=== PATIENT | male | born 1955 | race Caucasian/White ===

== ENCOUNTER 2018-06-16 06:06 | Inpatient (IN) | payer OTHER ==
[2018-06-15 14:29] VITALS: BMI 27.9
[2018-06-16] MEDS ORDERED: CEFAZOLIN 2 GM/D5W 2 GM/50 ML ML IVPB ONE (06:54)
[2018-06-16] MEDS ORDERED: GENTAMICIN SO4 80 MG/2 ML VIAL ONE (07:22)
[2018-06-16] MEDS ORDERED: BUPIVACAINE HCL/PF 0.5% (5MG/ML) 10 ML VIAL ONE (07:23)
[2018-06-16] MEDS ORDERED: THROMBIN (BOVINE) 20,000 UNIT VIAL TP ONE (07:23)
[2018-06-16] MEDS ORDERED: LIDOCAINE 1%-EPI 1:100,000 30 ML MDV IJ ONE ×2 (07:24→07:58)
[2018-06-16] MEDS ORDERED: THROMBIN (BOVINE) 5,000 UNIT VIAL TP ONE ×2 (07:24→08:55)
[2018-06-16] MEDS ORDERED: PROPOFOL 20 ML ONE ×2 (07:48)
[2018-06-16] MEDS ORDERED: MIDAZOLAM HCL 2 MG/2 ML SINGLE DOSE VIAL ONE (07:48)
[2018-06-16] MEDS ORDERED: LIDOCAINE HCL/PF 2% SDV 5ML VIAL ONE (07:49)
[2018-06-16] MEDS ORDERED: ROCURONIUM BROMIDE 50 MG/5 ML VIAL ONE (07:49)
--- NOTE | 2018-06-16 08:29 | HP ---
Admitting History and Physical - Primary Care Physician PCP: Radha Ayala - Admission Chief Complaint: Bilateral UE parasthesias due to cervical stenosis History of Present Illness: 62yo male with PMHx of BPH (not on medications). Comes to [facility] for scheduled C5 /6 ACDF secondary to his cervical spondylosis with instability. Denies n/v/f/c, CP, SOB, SAUNDERS. Denies WILSON. History Source: Patient Limitations to Obtaining History: No Limitations - Past Medical History TUBE SPLICER: No: CVA, Migraine, Peripheral Neuropathy, Syncope, TIA, Vertigo Cardiovascular: No: AFIB, Aneurysm, Aortic Insufficiency, Aortic Stenosis, CAD, CHF, Deep Vein Thrombosis, HTN, Hyperlipdemia, OR, Mitral Insufficiency, Mitral Stenosis, Murmur, Pulmonary Hypertension, Other Pulmonary: No: Asthma, Bronchitis, Cancer, COPD, O2 Dependent, Pneumonia, Previously Intubated, Pulmonary Embolus, Pulmonary Fibrosis, Sleep Apnea, Other Gastrointestinal: No: Ascites, Cancer, Constipation, Crohn's Disease, Diverticulitis, Diverticulosis, Esophageal Varices, Gastritis, GERD, GI Bleed, Hemorrhoids, Hiatal Hernia, Inflamatory Bowel Disease, Irritable Bowel Disease, Pancreatitis, Peptic Ulcer Disease, Ulcerative Colitis, Other Hepatobiliary: No: Cirrhosis, Cholelithiasis, Cholecystitis, Choledocholithiasis , Hepatitis A, Hepatitis B, Hepatitis C, Other Renal/: Yes: BPH Heme/Onc: No: Anemia, B12 Deficiency, Bleeding Disorder, Cancer, Current Chemotherapy, Current Radiation Therapy, Hemochromatosis, Hypercoaguable State, Myeloproliferative Synd, Sickle Cell Disease, Sickle Cell Trait, Thrombocytopenia, Other Psych: No: Addictions, Anxiety, Bipolar, Depression, Panic, Psychosis, Schizophrenia, Other ENT: No: Allergic Rhinitis, Sinusitis, Other Endocrine: No: Reeves's Disease, Sariah's Disease, Diabetes Insipidus, Diabetes Mellitus, Hyperparathyroidism, Hyperthyroidism, Hypothyroidism, Osteopenia, SIADH, Other Dermatology: No: Basal Cell, Cellulitis, Eczema, Melanoma, Psoriasis, Squamous Cell, Other - Past Surgical History Past Surgical History: Yes: None - Smoking History Smoking history: Never smoked - Alcohol/Substance Use Hx Alcohol Use: No Home Medications - Allergies Allergies/Adverse Reactions: Allergies Allergy/AdvReac Type Severity Reaction Status Date / Time No Known Allergies Allergy Verified 06/16/18 06:56 - Home Medications Home Medications: Ambulatory Orders NK [No Known Home Medication] 06/15/18 Family Disease History - Family Disease History Family Disease History: CA: Father (Prostate) Review of Systems - Review of Systems Constitutional: reports: No Symptoms Eyes: reports: No Symptoms HENT: reports: No Symptoms Neck: reports: No Symptoms Cardiovascular: reports: No Symptoms Respiratory: reports: No Symptoms Gastrointestinal: reports: No Symptoms Genitourinary: reports: No Symptoms Breasts: reports: No Symptoms Reported Musculoskeletal: reports: No Symptoms Integumentary: reports: No Symptoms Neurological: reports: No Symptoms Endocrine: reports: No Symptoms Hematology/Lymphatic: reports: No Symptoms Psychiatric: reports: No Symptoms Physical Examination Vital Signs: Vital Signs Temperature Pulse Rate Respiratory Rate Blood Pressure O2 Sat by Pulse Oximetry (%) 99 06/16/18 06:48 Constitutional: Yes: Well Nourished, No Distress, Calm Eyes: Yes: WNL, Conjunctiva Clear, EOM Intact HENT: Yes: WNL, Atraumatic, Normocephalic Neck: Yes: WNL, Supple, Trachea Midline Cardiovascular: Yes: WNL, Regular Rate and Rhythm Respiratory: Yes: WNL, Regular, CTA Bilaterally Gastrointestinal: Yes: WNL, Normal Bowel Sounds, Soft ...Rectal Exam: Yes: WNL Renal/: Yes: WNL Musculoskeletal: Yes: WNL Edema: No Peripheral Pulses WNL: Yes Peripheral Pulses: Left Radial: 2+, Right Radial: 2+, Left Doralis Pedis: 2+, Right Dorsalis Pedis: 2+, Left Femoral: 2+, Right Femoral: 2+ Integumentary: Yes: WNL Wound/Incision: Yes: Clean/Dry, Well Approximated Neurological: Yes: WNL, Alert, Oriented ...Motor Strength: WNL Psychiatric: Yes: WNL, Alert, Oriented Problem List - Problems (1) Cervical spondylosis with radiculopathy Assessment/Plan: Scheduled for OR today --> C5/6 ACDF Patient cleared/optimized for Surgery by Dr. Radha Ayala Code(s): M47.22 - OTHER SPONDYLOSIS WITH RADICULOPATHY, CERVICAL REGION
[2018-06-16] MEDS ORDERED: SODIUM CHLORIDE 0.9% P/F 10 ML VIAL IJ ONE ×2 (08:30→08:38)
[2018-06-16] MEDS ORDERED: ceFAZolin SODIUM 1 GM VIAL ONE (08:30)
[2018-06-16] MEDS ORDERED: ceFAZolin SODIUM 1 GM VIAL IVPB ONE (08:35)
[2018-06-16] MEDS ORDERED: VANCOMYCIN 1,000 MG VIAL (RESTRICTED TO ID ONLY) ONE (08:38)
[2018-06-16] MEDS ORDERED: VANCOMYCIN 1,000 MG VIAL (RESTRICTED TO ID ONLY) IVPB ONE (08:40)
[2018-06-16] MEDS ORDERED: ONDANSETRON 4 MG/2 ML VIAL ONE (08:40)
[2018-06-16] MEDS ORDERED: DEXAMETHASONE SOD PHOSPHATE 4 MG/1 ML VIAL ONE (08:40)
[2018-06-16] MEDS ORDERED: LIDOCAINE 1%/EPI 1:100000 (20 ML MULTI DOSE VIAL) IJ ONE (08:45)
[2018-06-16] MEDS ORDERED: GENTAMICIN SO4 80 MG/2 ML VIAL IVPB ONE (08:55)
[2018-06-16] MEDS ORDERED: GELATIN, ABSORBABLE 12-7MM EACH SPONGE TP ONE (08:55)
[2018-06-16] MEDS ORDERED: BACITRACIN 50,000 UNITS VIAL TP ONE (08:55)
[2018-06-16] MEDS ORDERED: HYDROGEN PEROXIDE 473 ML PO ONE (08:55)
[2018-06-16] MEDS ORDERED: NEOSTIGMINE METHYLSULFATE 0.5 MG/1 ML - 10 ML MDV ONE (09:38)
[2018-06-16] MEDS ORDERED: GLYCOPYRROLATE 0.2 MG/1 ML VIAL ONE (09:38)
[2018-06-16] MEDS ORDERED: METOPROLOL TARTRATE 5 MG/5 ML VIAL ONE (09:50)
[2018-06-16] MEDS ORDERED: ONDANSETRON 4 MG/2 ML VIAL IVPUSH PRN (10:03)
[2018-06-16] MEDS ORDERED: PROMETHAZINE HCL 25 MG/1 ML VIAL IVPUSH PRN (10:03)
--- NOTE | 2018-06-16 10:11 | OP ---
Operative Note - Note: Operative Date: 06/16/18 Pre-Operative Diagnosis: C5/6 Spondylosis, radiculopathy, instability Post-Operative Diagnosis: Same as Pre-op Surgeon: Vidal Bowden Acquisition Analyst: Joe Kahn Anesthesiologist/BASKET PATCHER: Curly Townsend Anesthesia: General Estimated Blood Loss (mls): 20 Drains, Volume Out (mls): 150 (marcelo-clear) Fluid Volume Replaced (mls): 900 Operative Report Dictated: Yes
[2018-06-16] MEDS ORDERED: oxyCODONE HCL 5 MG TABLET PO PRN (10:14)
[2018-06-16] MEDS ORDERED: diphenhydrAMINE HCL 25 MG CAPSULE (FP) PO PRN (10:14)
[2018-06-16] MEDS ORDERED: LACTATED RINGERS SOLUTION 1,000 ML/1,000 ML INFUS.BAG IV SCH (10:15)
[2018-06-16] MEDS ORDERED: ACETAMINOPHEN INJECTION 100 ML IVPB ONE (10:38)
[2018-06-16] MEDS ORDERED: ACETAMINOPHEN 1000 MG/100 ML VIAL (NON FORMULARY) IVPB ONE (10:40)
--- NOTE | 2018-06-16 12:00 | PN ---
Progress Note, Physician Chief Complaint: Bilateral UE parasthesias due to cervical stenosis History of Present Illness: 62yo male with PMHx of BPH (not on medications). Comes to [facility] for scheduled C5/ 6 ACDF secondary to his cervical spondylosis with instability. Denies n/v/f/c, CP, SOB, SAUNDERS. Denies WILSON. Operative Date: 06/16/18 Pre-Operative Diagnosis: C5/6 Spondylosis, radiculopathy, instability Post-Operative Diagnosis: Same as Pre-op Surgeon: Vidal Bowden Ground Control Approach Technician: Joe Kahn Anesthesiologist/SOFTWARE PERFORMANCE ENGINEER: Curly Townsend - Current Medication List Current Medications: Active Medications Acetaminophen (Ofirmev Injection -) 1,000 mg IVPB Q6H PRN PRN Reason: PAIN LEVEL 1-5 Diphenhydramine HCl (Benadryl -) 25 mg PO Q6H PRN PRN Reason: FOR ITCHING Docusate Sodium (Colace -) 100 mg PO TID ALIYAH Fentanyl (Sublimaze Injection -) 50 mcg IVPUSH [id number] PRN PRN Reason: PAIN-PACU ORDER X 4 DOSES ONLY Folic Acid (Folic Acid -) 1 mg PO DAILY ALIYAH Lactated Ringer's (Lactated Ringers Solution) 1,000 mls @ 125 mls/hr IV ASDIR ALIYAH Cefazolin Sodium (Ancef 1 Gm Premixed Ivpb -) 1 gm in 50 mls @ 100 mls/hr IVPB Q8H-IV ALIYAH Stop: 06/17/18 17:59 Lactated Ringer's (Lactated Ringers Solution) 1,000 ml in 1,000 mls @ 125 mls/ hr IV ASDIR ALIYAH Ondansetron HCl (Zofran Injection) 4 mg IVPUSH Q6H PRN PRN Reason: NAUSEA AND/OR VOMITING Oxycodone HCl (Roxicodone -) 5 mg PO Q4H PRN PRN Reason: PAIN LEVEL 1-5 Oxycodone HCl (Roxicodone -) 10 mg PO Q4H PRN PRN Reason: PAIN LEVEL 6-10 Promethazine HCl (Phenergan Injection -) 12.5 mg IVPUSH Q6H PRN PRN Reason: NAUSEA-FOR RESCUE AFTER 15 MIN - Objective Vital Signs: Vital Signs Temperature 97.9 F 06/16/18 09:59 Pulse Rate 67 06/16/18 11:15 Respiratory Rate 16 06/16/18 11:15 Blood Pressure 122/84 06/16/18 11:15 O2 Sat by Pulse Oximetry (%) 97 06/16/18 11:15 Constitutional: Yes: Well Nourished Neck: Yes: Decreased ROM, Other (Neck collar in place) Cardiovascular: Yes: Regular Rate and Rhythm Respiratory: Yes: Regular Gastrointestinal: Yes: Normal Bowel Sounds, Soft Musculoskeletal: Yes: WNL Extremities: Yes: WNL Edema: No Peripheral Pulses WNL: Yes Neurological: Yes: Alert, Lethargy Psychiatric: Yes: Alert Problem List - Problems (1) Cervical spondylosis with radiculopathy Assessment/Plan: Post op Anterior cervical discectomy and fusion Labs in AM pain management IV cefazolin IVF Code(s): M47.22 - OTHER SPONDYLOSIS WITH RADICULOPATHY, CERVICAL REGION Assessment/Plan See problem list
[2018-06-16] MEDS: LACTATED RINGERS SOLUTION 1,000 ML IV SCH (14:17)
[2018-06-16] MEDS: DOCUSATE SODIUM 100 MG CAPSULE (FP) PO SCH ×2 (16:33→22:51)
[2018-06-16] MEDS: oxyCODONE HCL 5 MG TABLET PO PRN (18:20)
[2018-06-16] MEDS: CEFAZOLIN 1 GM/D5W 1 GM/50 ML BAG IVPB SCH (18:20)
[2018-06-16] MEDS: ACETAMINOPHEN 1000 MG/100 ML VIAL (NON FORMULARY) IVPB PRN (22:45)
[2018-06-17] MEDS: CEFAZOLIN 1 GM/D5W 1 GM/50 ML BAG IVPB SCH ×2 (02:19→09:56)
[2018-06-17 07:23] LABS: BASO % 0.1 % (0-2.0); HEMATOCRIT 39.3 % (35.4-49); HEMOGLOBIN 13.6 GM/dL (11.7-16.9); LYMPH % 15.8 % (8-40); MCH 29.8 pg (25.7-33.7); MCHC 34.7 g/dl (32.0-35.9); MEAN CELL VOLUME 85.8 fl (80-96); MONO % 7.3 % (3.8-10.2); NEUT % 76.8 % (42.8-82.8); PLATELET COUNT 212 K/MM3 (134-434); RBC 4.58 M/mm3 (4.00-5.60); RDW 14.1 % (11.9-15.9); WHITE BLOOD COUNT 12.5 K/mm3 (4.0-10.0)
[2018-06-17 07:45] LABS: ALBUMIN 3.3 g/dl (3.4-5.0); ALK PHOS 51 U/L (45-117); ANION GAP 7 MMOL/L (8-16); BILIRUBIN,TOTAL 0.7 mg/dL (0.2-1); BLOOD UREA NITROGEN 14 mg/dL (7-18); CALCIUM 8.7 mg/dL (8.5-10.1); CHLORIDE 103 mmol/L (98-107); CO2 29 mmol/L (21-32); CREATININE 1.1 mg/dL (0.55-1.3); GLUCOSE,RANDOM 101 mg/dL (74-106); POTASSIUM 3.9 mmol/L (3.5-5.1); SGOT/AST 18 U/L (15-37); SGPT/ALT 27 U/L (13-61); SODIUM 139 mmol/L (136-145)
[2018-06-17] MEDS: DOCUSATE SODIUM 100 MG CAPSULE (FP) PO SCH ×3 (08:26→22:58)
--- NOTE | 2018-06-17 08:49 | PN ---
Progress Note (short form) - Note Progress Note: POD#1 Pt without pain in his shoulders/back this am. No CP/SOB. Feels weak overall. Overnight the marcelo had to placed for urinary retention, the patient was seen by urology in January 2018. He is unsure of the procedure or the urologist name he saw in the past. Tolerating clears. Vital Signs Period Temp Pulse Resp BP Sys/Rice Pulse Ox Last 24 Hr 97.6 F-98.2 F 67-84 16-20 120-154/70-85 97-100 YINKA: 60ml serosangrenous GEN: A&0x3, NAD NECK: collar in place. Dressing c/d/i. No erythema or bruising. CV: RRR Lungs: CTA b/l ABD: soft, non-distended, non-tender LE: no calf tenderness or swelling noted. Neuro: Shrug shoulders b/l symmetrical. Guardian Family Member strength equal b/l. 5/5 dorsi/ plantar flexion b/l. CBC, BMP 06/17/18 06:00 06/17/18 06:00 A/P: 62 yo male s/p C5/6 corpectomy with anterior cervical fusion Started flomax this am and will attempt another TOV tomorrow/D/w Dr. Grayson MALIK and ambulate with PT Pain control with oral pain medications as needed DVT ppx with lovenox SQ Adv diet to soft as tolerated D/w Dr. Kilgore
[2018-06-17] MEDS: TAMSULOSIN HCL 0.4 MG CAP PO SCH (09:56)
[2018-06-17] MEDS: FOLIC ACID 1 MG TABLET (FP) PO SCH (09:56)
[2018-06-17] MEDS: oxyCODONE HCL 5 MG TABLET PO PRN ×2 (11:20→22:56)
[2018-06-17] MEDS: LACTATED RINGERS SOLUTION 1,000 ML IV SCH (11:23)
[2018-06-17] MEDS: ACETAMINOPHEN 1000 MG/100 ML VIAL (NON FORMULARY) IVPB PRN (15:08)
--- NOTE | 2018-06-17 15:13 | PN ---
Progress Note, Physician Chief Complaint: Bilateral UE parasthesias due to cervical stenosis History of Present Illness: 62yo male with PMHx of BPH (not on medications). Comes to [facility] for scheduled C5/ 6 ACDF secondary to his cervical spondylosis with instability. Denies n/v/f/c, CP, SOB, SAUNDERS. Denies WILSON. Operative Date: 06/16/18 Pre-Operative Diagnosis: C5/6 Spondylosis, radiculopathy, instability Post-Operative Diagnosis: Same as Pre-op Surgeon: Vidal Bowden Machine Ironer: Joe Kahn Anesthesiologist/SECURITY CONTROLS ASSESSOR: Curly Townsend Feels better, mild headache walked with Physical therapy marcelo inserted yesterday due to urinary retention 2/2 to anesthesia Also started on Tamsulosin - Current Medication List Current Medications: Active Medications Acetaminophen (Ofirmev Injection -) 1,000 mg IVPB Q6H PRN PRN Reason: PAIN LEVEL 1-5 Last Admin: 06/17/18 15:08 Dose: 1,000 mg Diphenhydramine HCl (Benadryl -) 25 mg PO Q6H PRN PRN Reason: FOR ITCHING Docusate Sodium (Colace -) 100 mg PO TID [facility] Last Admin: 06/17/18 15:07 Dose: 100 mg Folic Acid (Folic Acid -) 1 mg PO DAILY [facility] Last Admin: 06/17/18 09:56 Dose: 1 mg Lactated Ringer's (Lactated Ringers Solution) 1,000 mls @ 125 mls/hr IV ASDIR [facility] Last Admin: 06/17/18 11:23 Dose: 125 mls/hr Cefazolin Sodium (Ancef 1 Gm Premixed Ivpb -) 1 gm in 50 mls @ 100 mls/hr IVPB Q8H-IV ALIYAH Stop: 06/17/18 17:59 Last Admin: 06/17/18 09:56 Dose: 100 mls/hr Ondansetron HCl (Zofran Injection) 4 mg IVPUSH Q6H PRN PRN Reason: NAUSEA AND/OR VOMITING Oxycodone HCl (Roxicodone -) 5 mg PO Q4H PRN PRN Reason: PAIN LEVEL 1-5 Oxycodone HCl (Roxicodone -) 10 mg PO Q4H PRN PRN Reason: PAIN LEVEL 6-10 Last Admin: 06/17/18 11:20 Dose: 10 mg Promethazine HCl (Phenergan Injection -) 12.5 mg IVPUSH Q6H PRN PRN Reason: NAUSEA-FOR RESCUE AFTER 15 MIN Tamsulosin HCl (Flomax -) 0.4 mg PO DAILY@0830 ALIYAH Last Admin: 06/17/18 09:56 Dose: 0.4 mg - Objective Vital Signs: Vital Signs Temperature 97.9 F 06/17/18 14:42 Pulse Rate 78 06/17/18 14:42 Respiratory Rate 06/17/18 14:42 Blood Pressure 120/72 06/17/18 14:42 O2 Sat by Pulse Oximetry (%) 97 06/16/18 12:45 Constitutional: Yes: Well Nourished, No Distress, Calm Neck: Yes: Decreased ROM (neck collar) Cardiovascular: Yes: Regular Rate and Rhythm Respiratory: Yes: Regular Gastrointestinal: Yes: Normal Bowel Sounds, Soft Musculoskeletal: Yes: Other (neck pain) Extremities: Yes: WNL Edema: No Peripheral Pulses WNL: Yes Wound/Incision: Yes: Dressing Dry and Intact Neurological: Yes: Alert, Oriented Psychiatric: Yes: Alert, Oriented Labs: CBC, BMP 06/17/18 06:00 06/17/18 06:00 Problem List - Problems (1) Cervical spondylosis with radiculopathy Assessment/Plan: Post op Anterior cervical discectomy and fusion Labs in AM pain management IV cefazolin IVF YINKA draining minimally Code(s): M47.22 - OTHER SPONDYLOSIS WITH RADICULOPATHY, CERVICAL REGION (2) Postoperative urinary retention Assessment/Plan: -likely 2/2 to anesthesia -Marcelo -Tamsulosin -d/c marcelo in AM with voiding trial after Code(s): N99.89 - OTH POSTPROCEDURAL COMPLICATIONS AND DISORDERS OF SYS; R33.8 - OTHER RETENTION OF URINE Assessment/Plan See problem list Physical therapy tolerated clear liquids, advance diet as tolerated d/c dispo-as per surgery
[2018-06-17] MEDS ORDERED: ACETAMINOPHEN 325 MG TABLET (FP) PO PRN (15:58)
[2018-06-17] MEDS: HEPARIN NA (PORCINE) 5,000 UNITS/ML 1ML VIAL SQ SCH (22:58)
[2018-06-18] MEDS: DOCUSATE SODIUM 100 MG CAPSULE (FP) PO SCH ×2 (06:20→13:41)
[2018-06-18] MEDS: HEPARIN NA (PORCINE) 5,000 UNITS/ML 1ML VIAL SQ SCH ×2 (06:20→13:41)
[2018-06-18] MEDS: TAMSULOSIN HCL 0.4 MG CAP PO SCH (08:33)
[2018-06-18] MEDS ORDERED: BENZOCAINE/MENTH/CETYLPYRD CL 1 EACH LOZENGE MM PRN (09:01)
--- NOTE | 2018-06-18 09:03 | PN ---
Progress Note (short form) - Note Progress Note: POD#2, s/p C5-C6 hemicorpectomies, ACDF Pt seen and examined. Reports h/a and anterior chest discomfort secondary to distal portion of brace. Neck pain currently well managed with use of PO pain meds. Tolerating PO, has been oob with PT (ambulated 100 feet w/ cane). Denies sob, n/v/d, calf pain/edema. Concerned about not having BM in 4 days. Vital Signs Temp 99.1 F 06/18/18 05:56 Pulse 79 06/18/18 05:56 Resp 20 06/18/18 05:56 BP 125/63 06/18/18 05:56 Pulse Ox 97 06/16/18 12:45 Intake & Output 06/17/18 06/18/18 06/18/18 23:59 11:59 23:59 Intake Total 1080 250 Output Total 1610 1005 Balance -530 -755 Intake: IV 880 Lactated Ringers Solution 880 1,000 ml @ 125 mls/hr IV ASDIR ALIYAH Rx#: [id number] IVPB 200 Oral 250 Output: Drainage 10 5 Anterior Neck 10 5 Urine 1600 1000 Williamson 1600 1000 Void 0 Other: Bowel Movement No CBC, BMP 06/18/18 11:00 YINKA: 5ml serosangrenous drainage overnight GEN: A&0x3, NAD NECK: collar in place. Dressing c/d/i. No erythema or bruising. Able to speak in full sentences. CV: RRR Lungs: CTA b/l ABD: soft, non-distended, non-tender LE: no calf tenderness or swelling noted. Neuro: B/L UE franchise broker strength strong and equal, b/l biceps/triceps 4+/5(does not appear to be giving full effort), B/L dorsiflexion/plantar flexion 5/5. SILT b/ l ue's, SILT b/l LEs. A/P: 62 y/o M w/ PMHx of BPH (not on medications), now POD 2, s/p elective C5/6 hemicorpectomies/ACDF for cervical spondylosis with instability. Stable exam this morning. Afebrile, VSS, bmp wnl, cbc pending -TOV for 6am -Will remove YINKA drain this afternoon -OOB and ambulate with PT -Pain control with oral pain medications as needed -Cepacol ordered for throat discomfort -Miralax and Senna added for constipation (chronic issue per pt) -DVT ppx with Heparin SQ 5000 units TID, b/l scds while in bed, early ambulation -Regular diet -Possible d/c later today pending TOV above d/w attending Dr Lewis
[2018-06-18] MEDS: oxyCODONE HCL 5 MG TABLET PO PRN ×2 (09:07→16:30)
[2018-06-18] MEDS: FOLIC ACID 1 MG TABLET (FP) PO SCH (09:07)
[2018-06-18] MEDS ORDERED: PANTOPRAZOLE 40 MG TABLET (FP) PO SCH (10:00)
--- NOTE | 2018-06-18 10:37 | PN ---
Progress Note, Physician Chief Complaint: Bilateral UE parasthesias due to cervical stenosis History of Present Illness: 62yo male with PMHx of BPH (not on medications). Comes to [facility] for scheduled C5/ 6 ACDF secondary to his cervical spondylosis with instability. Denies n/v/f/c, CP, SOB, SAUNDERS. Denies WILSON. Operative Date: 06/16/18 Pre-Operative Diagnosis: C5/6 Spondylosis, radiculopathy, instability Post-Operative Diagnosis: Same as Pre-op Surgeon: Vidal Bowden Kennel Keeper: Joe Kahn Anesthesiologist/SHUTTLE VAN DRIVER: Curly Townsend Feels better, mild headache walked with Physical therapy - Current Medication List Current Medications: Active Medications Acetaminophen (Tylenol -) 650 mg PO Q6H PRN PRN Reason: PAIN OR FEVER Benzocaine/Menthol (Cepacol Lozenge -) 1 each MM PRN PRN PRN Reason: SORE THROAT Last Admin: 06/18/18 10:06 Dose: 1 each Diphenhydramine HCl (Benadryl -) 25 mg PO Q6H PRN PRN Reason: FOR ITCHING Docusate Sodium (Colace -) 100 mg PO TID [facility] Last Admin: 06/18/18 06:20 Dose: 100 mg Folic Acid (Folic Acid -) 1 mg PO DAILY [facility] Last Admin: 06/18/18 09:07 Dose: 1 mg Heparin Sodium (Porcine) (Heparin -) 5,000 unit SQ TID [facility] Last Admin: 06/18/18 06:20 Dose: 5,000 unit Lactated Ringer's (Lactated Ringers Solution) 1,000 mls @ 125 mls/hr IV ASDIR [facility] Last Admin: 06/17/18 11:23 Dose: 125 mls/hr Ondansetron HCl (Zofran Injection) 4 mg IVPUSH Q6H PRN PRN Reason: NAUSEA AND/OR VOMITING Oxycodone HCl (Roxicodone -) 5 mg PO Q4H PRN PRN Reason: PAIN LEVEL 1-5 Oxycodone HCl (Roxicodone -) 10 mg PO Q4H PRN PRN Reason: PAIN LEVEL 6-10 Last Admin: 06/18/18 09:07 Dose: 10 mg Pantoprazole Sodium (Protonix -) 40 mg PO DAILY [facility] Last Admin: 06/18/18 09:07 Dose: 40 mg Promethazine HCl (Phenergan Injection -) 12.5 mg IVPUSH Q6H PRN PRN Reason: NAUSEA-FOR RESCUE AFTER 15 MIN Tamsulosin HCl (Flomax -) 0.4 mg PO DAILY@0830 [facility] Last Admin: 06/18/18 08:33 Dose: 0.4 mg - Objective Vital Signs: Vital Signs Temperature 99.1 F 06/18/18 05:56 Pulse Rate 79 06/18/18 05:56 Respiratory Rate 20 06/18/18 05:56 Blood Pressure 125/63 06/18/18 05:56 O2 Sat by Pulse Oximetry (%) 97 06/16/18 12:45 Constitutional: Yes: Well Nourished, No Distress, Calm Neck: Yes: Decreased ROM (neck collar) Cardiovascular: Yes: Regular Rate and Rhythm Respiratory: Yes: Regular Gastrointestinal: Yes: WNL Musculoskeletal: Yes: WNL Extremities: Yes: WNL Edema: No Peripheral Pulses WNL: Yes Neurological: Yes: Alert, Oriented Psychiatric: Yes: Alert, Oriented Labs: CBC, BMP 06/17/18 06:00 06/17/18 06:00 Problem List - Problems (1) Cervical spondylosis with radiculopathy Assessment/Plan: Post op Anterior cervical discectomy and fusion Labs today pending pain management IV cefazolin IVF YINKA draining minimally Code(s): M47.22 - OTHER SPONDYLOSIS WITH RADICULOPATHY, CERVICAL REGION (2) Postoperative urinary retention Assessment/Plan: -likely 2/2 to anesthesia -Marcelo -Tamsulosin- maybe discontinue outpatient -marcelo discontinued -awaiting pt to void Code(s): N99.89 - OTH POSTPROCEDURAL COMPLICATIONS AND DISORDERS OF SYS; R33.8 - OTHER RETENTION OF URINE Assessment/Plan See problem list Physical therapy tolerated regular diet d/c dispo-as per surgery
[2018-06-18] MEDS: LACTATED RINGERS SOLUTION 1,000 ML IV SCH (10:48)
[2018-06-18 11:50] LABS: BASO % 0.3 % (0-2.0); EOS % 0.3 % (0-4.5); HEMATOCRIT 38.1 % (35.4-49); HEMOGLOBIN 13.1 GM/dL (11.7-16.9); LYMPH % 24.5 % (8-40); MCH 29.9 pg (25.7-33.7); MCHC 34.3 g/dl (32.0-35.9); MEAN PLT VOLUME 10.5 fl (7.5-11.1); MONO % 9.5 % (3.8-10.2); NEUT % 65.4 % (42.8-82.8); PLATELET COUNT 198 K/MM3 (134-434); RBC 4.38 M/mm3 (4.00-5.60); WHITE BLOOD COUNT 11.3 K/mm3 (4.0-10.0)
[2018-06-18 12:03] LABS: ALBUMIN 3.6 g/dl (3.4-5.0); ALK PHOS 53 U/L (45-117); ANION GAP 8 MMOL/L (8-16); BILIRUBIN,TOTAL 0.5 mg/dL (0.2-1); BLOOD UREA NITROGEN 16 mg/dL (7-18); CALCIUM 8.6 mg/dL (8.5-10.1); CHLORIDE 100 mmol/L (98-107); CO2 31 mmol/L (21-32); CREATININE 1.2 mg/dL (0.55-1.3); GLUCOSE,RANDOM 95 mg/dL (74-106); POTASSIUM 3.6 mmol/L (3.5-5.1); SGOT/AST 18 U/L (15-37); SGPT/ALT 21 U/L (13-61); SODIUM 138 mmol/L (136-145); TOT PROT 7.3 g/dl (6.4-8.2)
[2018-06-18] MEDS ORDERED: POLYETHYLENE GLYCOL 3350 119 GM BTL PO ONE (12:04)
[2018-06-18 17:14] VITALS: BP 100/68; PULSE 87; TEMP 98.6
[2018-06-18] MEDS ORDERED: SENNOSIDES 8.6MG TABLET (FP) PO SCH (22:00)
== END 2018-06-18 19:11 | disposition home or self-care (01) | DRG 321 ==
LOC: JSAMEDAYSX 06:06 → J8W 13:58
PROVIDERS: ADMIT Family Medicine; ATTEND Family Medicine
PROC: 0RB30ZZ Excision of Cervical Vertebral Disc, Open Approach (ICD-10-PCS; 2018-06-16)
PROC: 00NW0ZZ Release Cervical Spinal Cord, Open Approach (ICD-10-PCS; 2018-06-16)
PROC: 4A11X4G Monitoring of Peripheral Nervous Electrical Activity, Intraoperative, External Approach (ICD-10-PCS; 2018-06-16)
PROC: B01BZZZ Fluoroscopy of Spinal Cord (ICD-10-PCS; 2018-06-16)
PROC: 0RG10A0 Fusion of Cervical Vertebral Joint with Interbody Fusion Device, Anterior Approach, Anterior Column, Open Approach (ICD-10-PCS; principal; 2018-06-16 08:00)
DX: M50.022 Cervical disc disorder at C5-C6 level with myelopathy (principal); M47.12 Other spondylosis with myelopathy, cervical region; M47.22 Other spondylosis with radiculopathy, cervical region; M47.012 Anterior spinal artery compression syndromes, cervical region; M53.2X2 Spinal instabilities, cervical region; N40.0 Benign prostatic hyperplasia without lower urinary tract symptoms; N99.89 Other postprocedural complications and disorders of genitourinary system; R33.8 Other retention of urine; Z80.42 Family history of malignant neoplasm of prostate; M40.40 Postural lordosis, site unspecified; M43.9 Deforming dorsopathy, unspecified; G57.11 Meralgia paresthetica, right lower limb; R25.8 Other abnormal involuntary movements; R29.2 Abnormal reflex
CPT/HCPCS: 36415; 72125-TC; 76000-TC-FY; 80048; 80053; 85025; 86850; 86900; 86901; 94010; 94760; 97116-GP; 97161-GP; J0131; J1644

== ENCOUNTER 2019-01-07 11:42 | Emergency (ER) | payer OTHER ==
[2019-01-07 12:20] VITALS: TEMP 98.2; BMI 29.8
[2019-01-07 13:08] VITALS: BP 157/91; PULSE 62
--- NOTE | 2019-01-07 13:08 | PDOC ---
History of Present Illness - General Chief Complaint: Headache Stated Complaint: HEADACHE Time Seen by Provider: 01/07/19 12:26 History Source: Spouse ( present at bedside.), Old Records Exam Limitations: Clinical Condition - History of Present Illness Initial Comments: HPI: 63 y/o male presenting to [facility] ER accompanied by with an altered mental status and complaining of a diffuse left sided head and neck pain. Pt unable or unwilling to verbally participate in interview. reports her woke up around 3am with a severe headache. He took one Percocet and went back to sleep. further reports the pt woke up again around 7 am with disorientation , nonsensical speech, and his tongue sounded heavy. No h/o of similar change in mental status. However, pt has a h/o of chronic head and neck pain following a traumatic accident several years ago. He underwent C5-C6 ACDF secondary to cervical spondylosis with instability [place] [address] Bowden. Todays pain is in the same location as usual pain but is more severe. No recent illness. No fevers, chills, chest pain, or SOB. No travel outside of the country or to wooded areas. No sick contacts. Social Hx: - EtOH: Denies - Tobacco: Denies - Street drugs: Denies Medical Hx: - BPH - S/p C5-C6 ACDF secondary to cervical spondylosis with instability (May 2018; Dr. Bowden) Review of Systems: Pt unwilling or unable to participate Physical Examination: Constitutional: Adult male in no acute distress but obvious discomfort. Found supine on hospital bed. Alert with eyes open and tracking activity. Followed all commands but would not speak. Head: Normocephalic. No obvious external signs of trauma. Eyes: Pupils 4mm and PERRL bilaterally. EOMI. Sclerae white. Throat: Oral cavity and pharynx normal. No inflammation, swelling, exudate, or lesions. Teeth and gingiva in good general condition. Uvula midline. No tongue deviation. Neck: Pt attempted to flex chin to chest but was unable to do so secondary to pain. Cardiovascular / Chest: Regular rate and regular rhythm. No murmur, rubs, clicks , or gallops. Peripheral pulses: radial pulses full. Respiratory: Breathing unlabored. Equal chest rise and fall. Clear to auscultation bilaterally. No stridor, no wheezing, no rhonchi. Gastrointestinal: abdomen is soft and non-distended. No overlying skin lesions or obvious signs of trauma. Neuro: Alert. Unable to assess orientation. Moving all four extremities spontaneously. No focal deficits. Cranial nerves intact. Sensation to all four extremities intact. Upper and lower extremities: proximal and distal strength 4/ 5. Bad Cloth Checker strength 4/5 - equal and symmetric. Plantar flexion and dorsiflexion 4/ 5. No nuchal rigidity. Skin: Warm, dry, and intact. MDM: *Reviewed vital signs, nursing notes, and prior visit documentation (if available). 63 y/o male presenting with altered mental status and diffuse left sided head and neck pain. In setting of narcotic usage and chronic pain in similar area following injury and cervical surgery. Afebrile. Vitals unremarkable for hypotension or tachycardia. Normoxic on room air. Physical exam as described above. Head CT unremarkable for acute intracranial pathology. EKG unremarkable for ischemic findings. Troponin not elevated. CXR unremarkable for acute cardiopulmonary findings. CBC unremarkable for anemia or leukocytosis. CMP unremarkable for significant electrolyte derangement. Ammonia not elevated. TSH within normal limits. VBG unremarkable for acidosis or alkalosis. No detectable alcohol level. Suspect symptoms are secondary to acute exacerbation of chronic pain coupled with Percocet usage (reviewed [place] [facility], printout scanned into chart) . Ordered Reglan and Acetaminophen for symptom relief. 15:29 Pt reassessed. Found to be alert and oriented x4. Reports pain has improved and continues to feel similar to previous episodes. Able to walk with assisted by personal cane. Low suspicion for acute life threat. Will prescribe PRN Reglan for pain relief. Encouraged pt to not take Percocet for relief unless absolutely necessary. Encouraged pt to f/u with Dr. Bowden in clinic. Discussed imaging and laboratory results with pt. Answered all questions. Provided return precautions. Pt expressed verbal understanding and agreement with plan to discharge home with outpatient follow up. Provided copies of today s results. Rene Dockery M.D., PGY2 Emergency Medicine Resident Past History - Past Medical History Allergies/Adverse Reactions: Allergies Allergy/AdvReac Type Severity Reaction Status Date / Time No Known Allergies Allergy Verified 01/07/19 12:04 Home Medications: Ambulatory Orders Docusate Sodium [Colace -] 300 mg PO HS #90 capsule 06/18/18 Folic Acid - 1 mg PO DAILY #30 tablet 06/18/18 Pantoprazole Sodium [Protonix -] 40 mg PO DAILY #30 tablet.ec 06/18/18 Sennosides [Senna -] 1 tab PO HS #30 tablet 06/18/18 Tamsulosin HCl [Flomax -] 0.4 mg PO DAILY@0830 #30 cap.er.24h 06/18/18 oxyCODONE HCL [Roxicodone -] 5 mg PO Q4H PRN #30 tablet MDD 6 06/18/18 Metoclopramide HCl [Reglan -] 10 mg PO BID PRN #21 tablet 01/07/19 Anemia: No COPD: No - Immunization History Immunization Up to Date: Yes - Suicide/Smoking/Psychosocial Hx Smoking History: Never smoked Hx Alcohol Use: No Drug/Substance Use Hx: No Substance Use Type: None Hx Substance Use Treatment: No *Physical Exam - Vital Signs Last Vital Signs Temp Pulse Resp BP Pulse Ox 98.2 F 78 18 172/105 H 100 01/07/19 12:05 01/07/19 12:05 01/07/19 12:05 01/07/19 12:05 01/07/19 12:05 Vital Signs - Vital Signs #1 Blood Pressure: 157/91 (@13:03) MAP: 113 BP Location: Right Arm Blood Pressure Position: Supine Pulse Rate: 62 Respiratory Rate: 15 O2 Sat by Pulse Oximetry (%): 100 Oxygen Delivery Method: Room Air ED Treatment Course - LABORATORY CBC & Chemistry Diagram: 01/07/19 13:55 01/07/19 13:55 - RADIOLOGY Radiology Studies Ordered: Category Date Time Status HEAD CT WITHOUT CONTRAST [CT] Stat CT Scan 01/07/19 12:18 Ordered *DC/Admit/Observation/Transfer Diagnosis at time of Disposition: Neck pain Headache Qualifiers: Headache type: unspecified Headache chronicity pattern: acute headache Intractability: not intractable Qualified Code(s): R51 - Headache Altered mental status Qualifiers: Altered mental status type: disorientation Qualified Code(s): R41.0 - Disorientation, unspecified - Discharge Dispostion Disposition: HOME Condition at time of disposition: Improved Decision to Admit order: No - Prescriptions Prescriptions: Metoclopramide HCl [Reglan -] 10 mg PO BID PRN #21 tablet PRN Reason: Pain / Headache - Referrals Referrals: Vidal Bowden MD, FAANS [Staff Physician] - - Patient Instructions Printed Discharge Instructions: DI for Headache, DI for Prescription Opioid Use , DI for Chronic Neck Pain Additional Instructions: Usted fue visto hoy por un dolor de yulia y un cambio en garces estado mental. Es probable que el dolor de yulia sea similar al dolor que siente por la lesin en el monika. Es probable que el cambio en garces estado mental se deba a los efectos secundarios de Percocet. Nihdi radiografas y anlisis de jasvir fueron normales hoy. He enviado iraj receta de Reglan a garces farmacia. Tmelo carol se indica en el prospecto. No exceda la dosis recomendada. [place] el Reglan y Tylenol de venta ian para el dolor. Solo use Percocet si esos medicamentos no hughes ayudado hugo varias horas. Kristie un seguimiento con el Dr. Bowden dentro de la prxima semana. Deber llamar para hacer iraj sharif. El nmero est incluido en sabrina paquete. Se adjunta iraj copia de los resultados de hoy a sabrina paquete. Llvelo a la sharif para que garces mdico pueda revisarlos. Tambin puede hacer un seguimiento con garces mdico de atencin primaria. Se adjunta iraj copia de los resultados de hoy a sabrina paquete. Llvelo a la sharif para que garces mdico pueda revisarlos. Dirjase al departamento de emergencias ms cercano si garces afeccin empeora o siente que necesita iraj evaluacin de emergencia adicional. You were seen today for a headache and a change in your mental status. The headache is likely similar to the pain you feel from your neck injury. The change in your mental status is likely from the side effects of Percocet. Your xrays and blood tests were normal today. I have sent a prescription for Reglan to your pharmacy. Take as directed on the package insert. Do not exceed the recommended dosage. Take the Reglan and over the counter Tylenol for the pain. Only use the Percocet if those medications have not helped for several hours. Follow up with Dr. Bowden within the next week. You will need to call to make an appointment. The number is included in this packet. A copy of todays results are attached to this packet. Take it to the appointment so your doctor can review them. You can also follow up with your primary care doctor. A copy of todays results are attached to this packet. Take it to the appointment so your doctor can review them. Go to the nearest emergency department if your condition worsens or you feel like you need additional emergency evaluation. Print Language: MOROCCAN - Post Discharge Activity Forms/Work/School Notes: Back to Work
[2019-01-07] MEDS ORDERED: ACETAMINOPHEN 1000 MG/100 ML VIAL (NON FORMULARY) IVPB ONE (13:14)
[2019-01-07] MEDS ORDERED: ACETAMINOPHEN INJECTION 100 ML IVPB ONE (13:26)
[2019-01-07] MEDS ORDERED: METOCLOPRAMIDE HCL INJECTION 10 MG/2 ML VIAL IVPUSH ONE (13:35)
[2019-01-07] MEDS ORDERED: METOCLOPRAMIDE HCL INJECTION 10 MG/2 ML VIAL ONE (13:49)
--- NOTE | 2019-01-07 14:20 | PDOC ---
Documentation entered by Ramu Saenz SCRIBE, acting as scribe for Bess Starr MD. Bess Starr MD: This documentation has been prepared by the Dany saldivar Daniel, SCRIBE, under my direction and personally reviewed by me in its entirety. I confirm that the documentation accurately reflects all work, treatment, procedures, and medical decision making performed by me. Attending Attestation - Resident Resident Name: Rene Dockery - ED Attending Attestation I have performed the following: I have examined & evaluated the patient, The case was reviewed & discussed with the resident, I agree w/resident's findings & plan - HPI HPI: 01/07/19 13:20 The patient is a 63 year old male with a past medical history of BPH, C5/6 Spondylosis, radiculopathy, and instability s/p ACDF in May 2018 here today for evaluation of altered mental status. The patients reports that the patient woke up prior to 7 AM and took 1 oxycodone and went back to sleep. She reports that he then woke up again around 7 AM and was altered where his speech was incoherent. Patient endorses some neck pain and headache. Allergies: NKA - Physicial Exam PE: 01/07/19 13:40 NAD, minimally verbal, EOMI, PERRL, no pinpoint pupils, MMM, nl conjunctiva, anicteric; neck supple. lungs clear, RRR, no murmur, abdomen soft nontender. Back nontender. MEAD x4, no focal neuro deficits. No peripheral edema. normal color for ethnicity, WWP. 01/07/19 14:05 - Medical Decision Making 01/07/19 14:06 See HPI for details. Prior notes reviewed, including admissions, discharges and consultations. Vital signs reviewed, hypertensive, will recheck no fever or systemic findings Vital Signs Temp Pulse Resp BP Pulse Ox 98.2 F 62 15 157/91 100 01/07/19 12:05 01/07/19 13:08 01/07/19 13:08 01/07/19 13:08 01/07/19 13:08 DDX cervicalgia, neck strain, migraine, tension meyer, cluster meyer, anemia, electrolyte/metabolic derangements, opioid overdose. medication side effect. CO2 retention. doubt fx, no trauma laboratory results and imaging reviewed, basic labs and lytes wnl, CXR_unremarkable CT head neg for acute pathology no indication for C spine imaging, s/p ACDF and no new trauma Cardiac panel_neg EKG normal sinus rhythm, no interval abnormalities, narrow QRS, ST and T wave segments and morphology normal. Nonspecific T wave abnormalities ED course -interventions: analgesia, tylenol, reglan and reassess no indication for narcan, but likely side effect from opioid use, checked [facility] record last dispensed percocet tablets in 07/2018. NSG f/u Dr Garcia reassess, after analgesia, feels improved, normal sensorium, mentating, ambulatory, fito PO no e/o w/d or intox VS normalized. cautioned on use of opioids. with med side effect profile. discharge home with PCP/NSG followup 01/07/19 14:21 01/08/19 16:02 01/08/19 16:03 01/08/19 16:04 Heart Score/ECG Review #1 ECG reviewed & interpreted by me at: 12:50 General ECG Interpretation: Sinus Rhythm, Normal Rate, Normal Intervals 01/07/19 14:20 EKG normal sinus rhythm, no interval abnormalities, narrow QRS, ST and T wave segments and morphology normal. Nonspecific T wave abnormalities
[2019-01-07 14:23] LABS: VENOUS PC02 43.4 mmHg (38-52); VENOUS PH 7.41 (7.31-7.41)
[2019-01-07 14:27] LABS: VENOUS PO2 < 49 mmHg (28-48)
[2019-01-07 14:38] LABS: BASO % 0.6 % (0-2.0); EOS % 1.3 % (0-4.5); HEMATOCRIT 39.7 % (35.4-49); HEMOGLOBIN 13.7 GM/dL (11.7-16.9); LYMPH % 32.2 % (8-40); MCH 29.9 pg (25.7-33.7); MCHC 34.4 g/dl (32.0-35.9); MEAN CELL VOLUME 86.8 fl (80-96); MEAN PLT VOLUME 10.7 fl (7.5-11.1); MONO % 7.3 % (3.8-10.2); NEUT % 58.6 % (42.8-82.8); PLATELET COUNT 259 K/MM3 (134-434); RBC 4.57 M/mm3 (4.00-5.60); RDW 14.3 % (11.9-15.9); WHITE BLOOD COUNT 7.5 K/mm3 (4.0-10.0)
[2019-01-07 15:04] LABS: ALK PHOS 54 U/L (45-117); ANION GAP 9 MMOL/L (8-16); BILIRUBIN,TOTAL 0.7 mg/dL (0.2-1); BLOOD UREA NITROGEN 15.9 mg/dL (7-18); CALCIUM 9.3 mg/dL (8.5-10.1); CHLORIDE 105 mmol/L (98-107); CO2 26 mmol/L (21-32); GLUCOSE,RANDOM 90 mg/dL (74-106); POTASSIUM 3.9 mmol/L (3.5-5.1); SGOT/AST 38 U/L (15-37); SGPT/ALT 68 U/L (13-61); SODIUM 140 mmol/L (136-145); TOT PROT 7.9 g/dl (6.4-8.2)
--- NOTE | 2019-01-07 16:59 | EKG ---
Test Reason : Blood Pressure : / mmHG Vent. Rate : 064 BPM Atrial Rate : 064 BPM P-R Int : 180 ms QRS Dur : 098 ms QT Int : 444 ms P-R-T Axes : 071 017 031 degrees QTc Int : 458 ms NORMAL SINUS RHYTHM POSSIBLE LEFT ATRIAL ENLARGEMENT BORDERLINE ECG NO PREVIOUS ECGS AVAILABLE Confirmed by ACE WISDOM, RONAL ([id number]) on 01/07/2019 4:58:51 PM Referred By: Confirmed By:RONAL BELLO MD
== END 2019-01-07 16:04 | disposition home or self-care (01) ==
LOC: JER 11:42
PROC: 3E033NZ Introduction of Analgesics, Hypnotics, Sedatives into Peripheral Vein, Percutaneous Approach (ICD-10-PCS; principal; 2019-01-07)
PROC: 3E033GC Introduction of Other Therapeutic Substance into Peripheral Vein, Percutaneous Approach (ICD-10-PCS; 2019-01-07)
DX: R41.0 Disorientation, unspecified (principal); R51 Headache; M54.2 Cervicalgia; N40.0 Benign prostatic hyperplasia without lower urinary tract symptoms; M47.892 Other spondylosis, cervical region; Z98.890 Other specified postprocedural states
CPT/HCPCS: 36415; 70450-TC; 71045-TC-FY; 80053; 80307; 82140; 82550; 82553; 82803; 82962; 84443; 84484; 85025; 93005; 93010; 99283-25; J0131

== ENCOUNTER 2019-04-21 06:06 | Day surgery (SDC) | payer OTHER ==
--- NOTE | 2019-04-20 21:53 | HP ---
[facility] - Chief Complaint Chief Complaint: right shoulder pain - Past Medical History Allergies/Adverse Reactions: Allergies Allergy/AdvReac Type Severity Reaction Status Date / Time No Known Allergies Allergy Verified 01/07/19 12:04 Renal/: Yes: BPH - Current Medications Current Medications: Home Medications Medication Instructions Recorded NK [No Known Home Medication] 04/21/19 [facility] Physical Exam - Physical Examination General Appearance: Well Nourished, Well Developed, Alert & Oriented x3 ENT: Clear Lung: Normal air movement Extremities: Other (right shoulder-+ttp, decr rom) Neurological: Intact, Alert, Oriented [facility] Impression/Plan - Impression/Plan Impression: right shoulder rct Operative Procedure: right shoulder arthroscopy with rcr sad Date to be Performed: 04/21/19
[2019-04-21 06:33] VITALS: BMI 29.0
[2019-04-21] MEDS ORDERED: ROPIVACAINE HCL 0.5% 30ML VIAL ONE (07:15)
[2019-04-21] MEDS ORDERED: MIDAZOLAM HCL 2 MG/2 ML SINGLE DOSE VIAL ONE ×3 (07:15→07:43)
[2019-04-21] MEDS ORDERED: EPHEDRINE SULFATE/0.9% NACL/PF 50 MG/10 ML SYRINGE NR ONE (07:28)
[2019-04-21] MEDS ORDERED: SUCCINYLCHOLINE CHLORIDE 200 MG/10 ML SYRINGE ONE (07:29)
[2019-04-21] MEDS ORDERED: PROPOFOL 20 ML ONE (07:29)
[2019-04-21] MEDS ORDERED: ceFAZolin SODIUM 1 GM VIAL ONE ×2 (07:46→07:47)
[2019-04-21] MEDS ORDERED: ceFAZolin SODIUM 1 GM VIAL IVPB ONE (07:47)
--- NOTE | 2019-04-21 09:51 | OP ---
Operative Note - Note: Operative Date: 04/21/19 ([facility]) Pre-Operative Diagnosis: right shoulder rct Operation: right shoulder arthroscopy with RCR, SAD, labral debridement Post-Operative Diagnosis: Same as Pre-op Surgeon: Stevan Gonsalves Dock Coordinator: Aristeo Franco Anesthesiologist/AUTOMOTIVE VEHICLE INSPECTOR: Soha Emerson Anesthesia: General, Local Specimens Removed: shavings Estimated Blood Loss (mls): 5
[2019-04-21 10:26] VITALS: TEMP 97.4
[2019-04-21] MEDS ORDERED: oxyCODONE HCL 5 MG TABLET PO PRN ×2 (10:32)
[2019-04-21] MEDS ORDERED: ONDANSETRON 4 MG/2 ML VIAL IVPUSH PRN (10:32)
[2019-04-21] MEDS ORDERED: LACTATED RINGERS SOLUTION 1,000 ML IV SCH (10:45)
[2019-04-21 11:45] VITALS: BP 137/91; PULSE 75
--- NOTE | 2019-04-21 14:50 | OP ---
DATE OF OPERATION: 04/21/2019 PREOPERATIVE DIAGNOSIS: Right rotator cuff tear. POSTOPERATIVE DIAGNOSIS: Right rotator cuff tear. PROCEDURE: Right rotator cuff repair and subacromial decompression. SURGICAL ATTENDING: Stevan Gonsalves MD CARD PUNCHER: Aristeo Franco MD ANESTHETIC: Regional and general. CLOSURE: Two SwiveLocks and FiberTape for the rotator cuff, 3-0 nylon for the skin. ESTIMATED BLOOD LOSS: Negligible. COMPLICATIONS: None. CONDITION: To the recovery room in stable condition. DESCRIPTION OF OPERATIVE PROCEDURE: Patient was taken to the operating room on April 21, 2019. Regional and general anesthesia were administered by the anesthesiologist. IV Kefzol was administered prophylactically prior to the case. Patient was placed in a beach-chair position with all prominences well padded. The right shoulder area was prepped and draped in the usual sterile fashion. First a diagnostic arthroscopy of the glenohumeral joint was performed. Posterior portal was made 2 fingerbreadths below the acromion first with a 15 blade followed by a blunt trocar. Circumferential exam of the glenohumeral joint revealed the following: Intact glenohumeral head articular cartilage. There was a superior labral tear that was detached that was abraded using the shaver. This was done through an inferior portal that was made through the anterior triangle first with a spinal needle, then a 15 blade and blunt trocar. There were some loose fragments floating in the shoulder which were debrided as well with the shaver. The glenohumeral head articular cartilage was intact. Subscapularis was intact to its insertion. The supraspinatus was found to be hanging on by a slight amount of articular side insertional fraying. This fraying was debrided using a shaver. The trocars were removed from the shoulder. The posterior trocar was redirected in the subacromial space. An accessory lateral portal was made with a 15 blade followed by a blunt trocar. A bursectomy was performed using the ArthroCare device. The coracoacromial ligament was identified and detached off the anterior acromion. It was visualized, retracted inferiorly and was further debrided. Once the acromion was debrided gaining 50% height of the acromion there was a large spur which was also debrided. Looking inferiorly the rotator cuff was encased with some fibrinous material. This was debrided using the ArthroCare and the shaver. This exposed the high-grade partial-thickness supraspinatus tear. Gentle probing revealed that I was able to complete the tear. SutureTape sutures were placed using a horizontal mattress formation by using the Scorpio needle in the tear. This was fixated to the greater tuberosity by using 2 SwiveLock anchors. Excellent repair was obtained. The shoulder was taken through a passive range of motion and was found to have excellent clearance in the subacromial space. The trocars were removed. The portals were closed using 3-0 nylon. A sterile pressure dressing followed by a shoulder immobilizer was applied. The patient awoken from anesthesia and transferred to the recovery room in stable condition. No complications. Estimated blood loss negligible. Silvana [id number]
--- NOTE | 2019-04-22 13:02 | PATH ---
Surgical Pathology Report Patient Name: SELVIN BIRCH [facility]. Rec. #: [id number] /Age/Gender: 1955 (Age: 63) / M Account: [id number] Location: [facility] SURGICAL Taken: 04/21/2019 Received: 04/21/2019 Reported: 04/22/2019 Physicians: Stevan Gonsalves M.D. Specimen(s) Received RIGHT SHOULDER Clinical History Right shoulder tear Final Diagnosis SHOULDER SHAVINGS, RIGHT, ARTHROSCOPY, LABRUM REPAIR, SUBACROMIAL DECOMPRESSION: FRAGMENTS OF BENIGN CARTILAGE, BONE, DENSE FIBROCONNECTIVE TISSUE, ADIPOSE TISSUE, AND SKELETAL MUSCLE. Electronically Signed Nesha Sandra M.D. Gross Description Received in formalin, labeled "right shoulder shavings," is a 4.5 x 4.0 x 0.3 cm. aggregate of park-yellow soft tissue fragments. A airport representative portion is submitted in one cassette. /04/21/201904/21/2019
== END 2019-04-21 11:30 | disposition home or self-care (01) ==
LOC: JASU-SURG 06:06
PROVIDERS: ATTEND Orthopaedic Surgery
PROC: 0LQ14ZZ Repair Right Shoulder Tendon, Percutaneous Endoscopic Approach (ICD-10-PCS; 2019-04-21)
PROC: 0RNJ4ZZ Release Right Shoulder Joint, Percutaneous Endoscopic Approach (ICD-10-PCS; principal; 2019-04-21 07:30)
DX: M75.101 Unspecified rotator cuff tear or rupture of right shoulder, not specified as traumatic (principal)
CPT/HCPCS: 94760

== ENCOUNTER 2024-01-01 04:14 | Day surgery (SDC) | payer MEDICARE, OTHER ==
[2023-12-29 17:12] VITALS: BMI 31.1
[2024-01-01 08:34] VITALS: RESP 18
[2024-01-01] MEDS: LIDOCAINE HCL 1% PRESERVATIVE FREE - 30ML VIAL IJ ONE ×2 (10:20)
[2024-01-01] MEDS: IOHEXOL 180 MG/1 ML ML IJ ONE ×3 (10:22)
[2024-01-01] MEDS: DEXAMETHASONE SOD PHOSPHATE 10 MG/1 ML VIAL IVPUSH ONE ×2 (10:22)
[2024-01-01] MEDS ORDERED: LIDOCAINE HCL/PF 1% SDV 5ML VIAL ONE (10:35)
[2024-01-01] MEDS ORDERED: DEXAMETHASONE SOD PHOSPHATE 10 MG/1 ML VIAL ONE (10:35)
[2024-01-01 12:23] VITALS: BP 167/89; PULSE 58; TEMP 97.7
[2024-01-01] MEDS ORDERED: ACETAMINOPHEN 500 MG TABLET (FP) PO PRN (12:43)
== END 2024-01-01 11:01 | disposition home or self-care (01) ==
LOC: JASU-SURG 04:14
PROVIDERS: ATTEND Pain Medicine Pain Medicine
PROC: 3E0R3BZ Introduction of Anesthetic Agent into Spinal Canal, Percutaneous Approach (ICD-10-PCS; 2024-01-01)
PROC: 3E0R33Z Introduction of Anti-inflammatory into Spinal Canal, Percutaneous Approach (ICD-10-PCS; principal; 2024-01-01 09:45)
DX: M48.061 Spinal stenosis, lumbar region without neurogenic claudication (principal); M54.16 Radiculopathy, lumbar region
CPT/HCPCS: 76000-TC-FY; J1100

== ENCOUNTER 2024-02-13 03:53 | Day surgery (SDC) | payer MEDICARE, OTHER ==
[2024-02-11 10:34] VITALS: BMI 31.1
[2024-02-13] MEDS ORDERED: LIDOCAINE HCL/PF 1% SDV 5ML VIAL ONE (07:13)
[2024-02-13] MEDS ORDERED: LIDOCAINE HCL/PF 2% SDV 5ML VIAL ONE (07:13)
[2024-02-13] MEDS ORDERED: MIDAZOLAM HCL 2 MG/2 ML SINGLE DOSE VIAL ONE ×2 (10:44→11:25)
[2024-02-13] MEDS ORDERED: ceFAZolin SODIUM 1 GM VIAL ONE (10:45)
[2024-02-13] MEDS ORDERED: ONDANSETRON 4 MG/2 ML VIAL ONE (10:45)
[2024-02-13] MEDS ORDERED: DEXAMETHASONE SOD PHOSPHATE 4 MG/1 ML VIAL ONE (10:45)
[2024-02-13] MEDS: LIDOCAINE HCL 1%, 10 MG/ML (20ML VIAL) INF ONE (11:52)
[2024-02-13] MEDS: LIDOCAINE HCL 2% (50ML VIAL) INF ONE (11:53)
[2024-02-13] MEDS: DEXAMETHASONE SOD PHOSPHATE 10 MG/1 ML VIAL IM ONE (11:54)
[2024-02-13 13:26] VITALS: TEMP 97.5
[2024-02-13] MEDS ORDERED: ACETAMINOPHEN 500 MG TABLET (FP) ONE (15:26)
[2024-02-13] MEDS: ACETAMINOPHEN 500 MG TABLET (FP) PO PRN (15:33)
[2024-02-13 16:35] VITALS: BP 120/76; PULSE 78; RESP 18
== END 2024-02-13 16:50 | disposition home or self-care (01) ==
LOC: JASU-SURG 03:53
PROVIDERS: ATTEND Pain Medicine Pain Medicine
PROC: 00NY3ZZ Release Lumbar Spinal Cord, Percutaneous Approach (ICD-10-PCS; principal; 2024-02-13 10:45)
DX: M48.062 Spinal stenosis, lumbar region with neurogenic claudication (principal)
CPT/HCPCS: 0275T; C1889; 76000-TC-FY; 88304-TC; 94760; J1100